=== PATIENT | female | born 1940 | race Caucasian/White ===

== ENCOUNTER 2021-02-16 05:50 | Emergency (ER) | payer MEDICARE ==
[~2021-02-16] VITALS: Ht 162.6 cm; Wt 56.7 kg
--- NOTE | 2021-02-16 05:55 | NUR ---
pt bibra c/o backpain. Pt [id number] breathing evenly and unlabored. 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 Skin is warm, dry, and intact. Pt given blanket and call light within reach.
[2021-02-16] MEDS ORDERED: KETOROLAC TROMETHAMINE INJ 60 MG/2 ML VIAL IM ONE (06:30)
[2021-02-16] MEDS ORDERED: LORAZEPAM INJ 2 MG/ML VIAL IM ONE (06:30)
--- NOTE | 2021-02-16 06:58 | NUR ---
Patient does not wish to proceed with medical care recommended by Dr. Valentino. Patient given information related to possible complications, up to and including , which could occur as a result of leaving the hospital at this time. Patient verbalizes understanding of risks involved due to leaving against medical advice. Patient has signed AMA form.
[2021-02-16 07:00] VITALS: BP 155/99
== END 2021-02-16 06:58 | disposition left against medical advice (07) ==
LOC: ER 05:53
DX: M54.5 Low back pain (principal)